=== PATIENT | female | born 1980 | race American Indian/Alaskan Native ===

== ENCOUNTER 2016-10-12 08:46 | Observation (INO) | payer BC ==
[2016-10-12] MEDS ORDERED: ZOFRAN IV PRN (10:30)
[2016-10-12] MEDS ORDERED: TYLENOL PO PRN ×2 (10:30)
[2016-10-12] MEDS ORDERED: ALUM-MAG HYDROX-SIMETH 200-200-20MG/5ML PO PRN (10:30)
[2016-10-12] MEDS ORDERED: BENADRYL PO PRN (10:30)
[2016-10-12] MEDS ORDERED: COLACE PO PRN (10:30)
[2016-10-12] MEDS ORDERED: SUDAFED PO PRN (10:30)
[2016-10-12] MEDS ORDERED: NACL 0.9% 500 ML 500 ML IV NR (10:30)
[2016-10-12] MEDS ORDERED: MYLICON PO PRN (10:30)
[2016-10-12 10:59] LABS: Basophils % (Auto) 0.5 % (0.0-1.8); Eosinophils % (Auto) 1.4 % (0.0-4.3); Hematocrit 23.6 % (30.3-42.9); Hemoglobin 7.1 gm/dl (10.1-14.3); Mean Corpuscular HGB Conc 30 % (30-34); Platelet Count 360 K/mm3 (140-440); Red Blood Count 3.98 M/mm3 (3.65-5.03); Red Cell Distribution Width 19.6 % (13.2-15.2); White Blood Count 6.8 K/mm3 (4.5-11.0)
[2016-10-12] MEDS ORDERED: ROBITUSSIN DM PO PRN (11:00)
[2016-10-12] MEDS ORDERED: DEEP SEA NS PRN (11:00)
[2016-10-12 11:02] LABS: Mean Corpuscular Hemoglobin 18 pg (28-32); Mean Corpuscular Volume 59 fl (79-97)
[2016-10-12] MEDS: LACTATED RINGERS 1,000 ML IV SCH (11:28)
[2016-10-12] MEDS ORDERED: WATER FOR INJ (PF) 10 ML ONE ×2 (14:47→21:02)
[2016-10-12] MEDS: PREMARIN IV SCH ×2 (14:56→21:21)
--- NOTE | 2016-10-12 15:25 | History and Physical Report ---
History of Present Illness Date of examination: 10/12/16 Date of admission: 10/12/16 10:11 Chief complaint: Menometrorrahgia with anemia, severe History of present illness: This is a 36year old female with excessive and frequent menstruation, uncontrolled with current medical therapy, who was found to be severely anemic on 10/07/2016 office visit (hgb 6.1) and now symptomatic. She presents now for a transfusion of PRBC's and IV estrogen. Past History : 1 Term Births: 1 Living Children: 1 CONCRETE MASON History Operations: Negative Past Surgical History Abnormal PAP: negative Infection History HIV Risk Eval: no Hx of STD: HSV Active Medications (reviewed today): VALACYCLOVIR HCL 1 GM ORAL TABS (VALACYCLOVIR HCL) 1 tab po qd x5days prn CAMRESE LO 0.1-0.02 & 0.01 MG ORAL TABS (LEVONORGEST-ETH ESTRAD 91-DAY) 1 tab po qd ADIPEX-P 37.5 MG ORAL TABS (PHENTERMINE HCL) Current Allergies (reviewed today): PCN (Critical) Past Medical History: Reviewed history from 09/06/2015 and no changes required: Negative Past Medical History Past Surgical History: Reviewed history from 09/06/2015 and no changes required: Negative Past Surgical History Family History Summary: Reviewed history and no changes required: 10/06/2016 Other family member - Has No Family History of Breast Cancer - Entered On: 2015 Other family member - Has No Family History of Colon Cancer - Entered On: 2015 Other family member - Has No Family History of Ovarvian Cancer - Entered On: 09/05 Other family member - Has No Family History of DVT/PE on OCP - Entered On: 2015 Father (biol.) - Has Family History of Prostate Cancer - Entered On: 09/09/2016 Other family member - Has No Family History of Biliary Tract Cancer - Entered On : 09/09/2016 Other family member - Has No Family History of Brain Cancer - Entered On: 2016 Other family member - Has No Family History of Kidney/Urinary Tract Cancer - Entered On: 09/09/2016 Other family member - Has No Family History of Pancreatic Cancer - Entered On: Other family member - Has No Family History of Stomach Cancer - Entered On: 2016 Other family member - Has No Family History of Small Bowel Cancer - Entered On: 09/09/2016 Social History: Reviewed history from 08/28/2016 and no changes required: Patient is single Smoking History: Patient has never smoked. Risk Factors: Smoked Tobacco Use: Never smoker Alcohol use: no PAP Smear History: Date of Last PAP Smear: 09/06/2015 Previous Tobacco Use: Signed On - 08/28/2016 Smoked Tobacco Use: Never smoker Smokeless Tobacco Use: Never Drug use: no HIV high-risk behavior: no Previous Alcohol Use: Signed On - 08/28/2016 Alcohol use: no Exercise: no Seatbelt use: 100 % PAP Smear History: Date of Last PAP Smear: 09/06/2015 Review of Systems General Denies fever, chills, sweats, anorexia, fatigue, weakness, malaise, weight loss and sleep disorder. Denies vaginal discharge, incontinence, dysuria, hematuria, urinary frequency, amenorrhea, menorrhagia, abnormal vaginal bleeding, pelvic pain, genital sores, decreased libido, painful periods, painful sex, urinary urgency, hot flashes, vaginal dryness, vaginal itching and vaginal odor. CV Denies chest pains, palpitations, syncope, dyspnea on exertion, orthopnea, PND and peripheral edema. Resp Denies cough, dyspnea at rest, excessive sputum, hemoptysis, wheezing and pleurisy. GI Denies nausea, vomiting, diarrhea, constipation, change in bowel habits, abdominal pain, melena, hematochezia, jaundice, gas/bloating, indigestion/ heartburn, dysphagia and odynophagia. Endo Denies cold intolerance, heat intolerance, polydipsia, polyphagia, polyuria and unusual weight change. Breast Denies left breast lump, right breast lump, nipple discharge, bloody discharge from nipple, breast pain, abnormal mammogram and breast enlargement. MS Denies back pain, joint pain, joint swelling, muscle cramps, muscle weakness, stiffness, arthritis, sciatica, restless legs, leg pain at night and leg pain with exertion. Derm Denies rash, itching, dryness and suspicious lesions. Neuro Denies paralysis, paresthesias, headache, seizures, tremors, vertigo, transient blindness, frequent falls, frequent headaches and difficulty walking. Psych Denies depression, anxiety, irritability and mood swings. Eyes Denies blurring, diplopia, irritation, discharge, vision loss, eye pain and photophobia. ENT Denies earache, ear discharge, tinnitus, decreased hearing, nasal congestion, nosebleeds, sore throat and hoarseness. Allergy Denies urticaria, allergic rash, hay fever and recurrent infections. Heme Denies abnormal bruising, bleeding and enlarged lymph nodes. Laboratory Results Urine HCG: negative Physical Exam performed 09/18/2016 Appearance: well developed, well nourished, no acute distress Other Exams Breast exam: no masses or nipple discharge Abdomen: soft, non-tender, no masses, Skin: no ulcers, xanthomas Lymph: no cervical, axillary, or inguinal adenopathy Extremities: normal alignment, no joint enlargement, crepitus, masses or tenderness; normal tone and strength Genitourinary Exam Vulva: normal, no lesions or discharge Urethral meatus: normal size and location, no lesions or discharge Urethra: no discharge Bladder: no cystocele Vagina: normal appearance, no discharge, lesions. No evidence of cystocele or rectocele. Cervix: normal appearance, no lesions, no discharge Uterus: normal position, midline, mobile Adnexa: no masses or tenderness Medications and Allergies Allergies Allergy/AdvReac Type Severity Reaction Status Date / Time Penicillins AdvReac Unknown Verified 10/12/16 09:55 Active Meds: Active Medications Acetaminophen (Tylenol) 650 mg PO Q4H PRN PRN Reason: Pain MILD(1-3) Acetaminophen (Tylenol) 650 mg PO Q4H PRN PRN Reason: fever>100.5 Al Hydrox/Mg Hydrox/Simethicone (Alum-Mag Hydrox-Simeth [id number]/5ml) 30 ml PO Q6H PRN PRN Reason: Indigestion Diphenhydramine HCl (Benadryl) 25 mg PO Q6H PRN PRN Reason: Itching Docusate Sodium (Colace) 100 mg PO Q12H PRN PRN Reason: Constipation Estrogens Conjugated (Premarin) 25 mg IV Q6HR JÚNIOR Stop: 10/12/16 18:01 Last Admin: 10/12/16 14:56 Dose: 25 mg Guaifenesin (Robitussin Dm) 10 ml PO Q6H PRN PRN Reason: Cough Lactated Ringer's (Lactated Ringers) 1,000 mls @ 125 mls/hr IV DIRECT JÚNIOR Last Admin: 10/12/16 11:28 Dose: 125 mls/hr Magnesium Hydroxide (Milk Of Magnesia) 30 ml PO QHS PRN PRN Reason: Laxative Effect Ondansetron HCl (Zofran) 4 mg IV Q6H PRN PRN Reason: Nausea And Vomiting Pseudoephedrine HCl (Sudafed) 30 mg PO Q4H PRN PRN Reason: Nasal Congestion Simethicone (Mylicon) 80 mg PO Q6H PRN PRN Reason: Gas pain Sodium Chloride (Deep Sea) 2 spray NS Q4H PRN PRN Reason: Congestion Exam - Constitutional Vitals: Temp Pulse Resp BP Pulse Ox 98.2 F 78 20 121/86 10/12/16 13:00 10/12/16 13:00 10/12/16 13:00 10/12/16 13:00 Results - Labs CBC & Chem 7: 10/12/16 10:34 Labs: Abnormal lab results 10/12/16 10/12/16 Range/Units 10:34 10:34 Hgb 7.1 L (10.1-14.3) gm/dl Hct 23.6 L (30.3-42.9) % MCV 59 L (79-97) fl MCH 18 L (28-32) pg RDW 19.6 H (13.2-15.2) % Crossmatch See Detail Assessment and Plan - Patient Problems (1) Anemia Current Visit: Yes Status: Chronic Qualifiers: Anemia type: A Iron deficiency anemia type: chronic blood loss Vitamin B12 deficiency anemia type: V Folate deficiency anemia type: F Bone marrow failure anemia type: B Hemolytic anemia type: H Other causes of anemia: O Qualified Code(s): D50.0 - Iron deficiency anemia secondary to blood loss ( chronic) Plan to address problem: Transfuse 2units [facility]'s now, she is currently bleeding heavy (2) Excessive and frequent menstruation with irregular cycle Current Visit: Yes Status: Chronic Plan to address problem: IV estrogen therapy then will place Mirena IUD in the office
[2016-10-12] MEDS ORDERED: MILK OF MAGNESIA PO PRN (22:00)
[2016-10-12 22:15] LABS: Hematocrit 27.4 % (30.3-42.9); Hemoglobin 8.5 gm/dl (10.1-14.3)
[2016-10-13] MEDS: LACTATED RINGERS 1,000 ML IV SCH (03:11)
--- NOTE | 2016-10-13 07:44 | Discharge Summary ---
Providers - Providers Date of Admission: 10/12/16 10:11 Attending physician: TERA GIBBONS Primary care physician: ESCROW REPRESENTATIVE Hospitalization Reason for admission: severe anemia with menorrhagia Condition: Good Hospital course: Patient has a history of menorrhagia and was noted to have a hgb of 6.1 on 2016. She became asymptomatic on Wednesday and was admitted for transfusion and estrogen IV therapy. She received 2untis PRBC's and 2 doses IV Premarin, she feels much better and she only spotting now. She desires discharge home. Disposition: DISCHARGED TO HOME OR SELFCARE - Discharge Diagnoses (1) Anemia Status: Chronic Qualifiers: Anemia type: A Iron deficiency anemia type: chronic blood loss Vitamin B12 deficiency anemia type: V Folate deficiency anemia type: F Bone marrow failure anemia type: B Hemolytic anemia type: H Other causes of anemia: O Qualified Code(s): D50.0 - Iron deficiency anemia secondary to blood loss ( chronic) (2) Excessive and frequent menstruation with irregular cycle Status: Chronic Core Measure Documentation - Palliative Care Palliative Care/ Comfort Measures: Not Applicable - Core Measures Any of the following diagnoses?: none Exam - Constitutional Vitals: Temp Pulse Resp BP Pulse Ox 98.1 F 76 20 134/79 10/13/16 05:00 10/13/16 05:00 10/13/16 05:00 10/13/16 05:00 Plan Activity: other (no sex, stay home) Weight Bearing Status: Weight Bear as Tolerated Diet: regular Special Instructions: no heavy lifting Follow up with: VERNON DOLL MD [Primary Care Provider] - 7 Days TERA GIBBONS MD [Staff Physician] - 10/14/16 2:45 pm (Andreas) Forms: Work/School Release Form
[2016-10-13 09:03] VITALS: BP 142/80
== END 2016-10-13 10:15 | disposition home or self-care (01) ==
LOC: OB 08:46 → UNDOADMIN 08:46 → INTOOBSV 10:11 → OB 10:11
PROVIDERS: ADMIT Obstetrics & Gynecology; ATTEND Obstetrics & Gynecology
DX: D50.0 Iron deficiency anemia secondary to blood loss (chronic) (principal); N92.1 Excessive and frequent menstruation with irregular cycle; Z80.42 Family history of malignant neoplasm of prostate
CPT/HCPCS: 36415; 81025; 85014; 85018; 85025; 86850; 86900; 86901; 86920; 96361; 96374; 96375; 96376; G0378; G0379; J1410; J2405; J7040; J7120; P9016

== ENCOUNTER 2016-11-10 06:06 | Observation (INO) | payer BC ==
--- NOTE | 2016-11-06 12:56 | Anesthesia Consultation ---
Anesthesia Consult and Med Hx Date of service: 11/06/16 - Airway Anesthetic Teeth Evaluation: Good ROM Head & Neck: Adequate Mental/Hyoid Distance: Adequate Mallampati Class: Class II Intubation Access Assessment: Probably Good - Pulmonary Exam CTA: Yes - Cardiac Exam Cardiac Exam: RRR - Pre-Operative Health Status ASA Pre-Surgery Classification: ASA2 Proposed Anesthetic Plan: General Nerve Block: TAP - Pulmonary Hx Smoking: No Hx Asthma: No COPD: No Hx Pneumonia: No - Cardiovascular System Hx Hypertension: No Hx Coronary Artery Disease: No - Central Nervous System Hx Seizures: No CVA: No Hx Psychiatric Problems: No - Endocrine Hx Renal Disease: No Hx End Stage Renal Disease: No Hx Hyperthyroidism: No - Hematic Hx Anemia: Yes - Other Systems Hx Cancer: No
[2016-11-06 13:20] LABS: Hematocrit 34.4 % (30.3-42.9); Hemoglobin 10.9 gm/dl (10.1-14.3); Mean Corpuscular HGB Conc 32 % (30-34); Mean Corpuscular Volume 72 fl (79-97); Platelet Count 303 K/mm3 (140-440); Red Blood Count 4.81 M/mm3 (3.65-5.03); White Blood Count 8.5 K/mm3 (4.5-11.0)
[2016-11-06 13:28] LABS: Mean Corpuscular Hemoglobin 23 pg (28-32); Red Cell Distribution Width 31.1 % (13.2-15.2)
[2016-11-06 14:11] LABS: Blastocytes % (Manual) 0 %
[2016-11-06 14:12] LABS: Anisocytosis 3+; Diff Status Complete; Hypochromasia 1+; Platelet Estimate Consistent w Auto
--- NOTE | 2016-11-09 18:00 | History and Physical Report ---
History of Present Illness Date of examination: 11/06/16 Chief complaint: Menometrorrhagia causing severe anemia that required a transfusion of PRBCs. She now desires definitive therapy in the form of hysterectomy with bilateral salpingectomy and other indicated procedures. Past History : 1 Term Births: 1 Living Children: 1 SAND BLASTER History Operations: Negative Past Surgical History Abnormal PAP: negative Infection History HIV Risk Eval: no Hx of STD: HSV Active Medications (reviewed today): IBUPROFEN 800 MG TABS (IBUPROFEN) 1 po TID (PRN) OXYCODONE-ACETAMINOPHEN 5-325 MG TABS (OXYCODONE-ACETAMINOPHEN) 1-2po q6h MIRENA 20 MCG/24HR IUD (LEVONORGESTREL) insert with next FERROUS SULFATE 325 (65 FE) MG TABS (FERROUS SULFATE) 1 po tid VALACYCLOVIR HCL 1 GM ORAL TABS (VALACYCLOVIR HCL) 1 tab po qd x5days prn Current Allergies (reviewed today): PCN (Critical) Past Medical History: Anemia Past Surgical History: Reviewed history from 09/06/2015 and no changes required: Negative Past Surgical History Social History: Reviewed history from 09/18/2016 and no changes required: Patient is single Smoking History: Patient has never smoked. Risk Factors: Smoked Tobacco Use: Never smoker Smokeless Tobacco Use: Never Drug use: no HIV high-risk behavior: no Alcohol use: no Exercise: no Seatbelt use: 100 % PAP Smear History: Date of Last PAP Smear: 09/18/2016 Previous Tobacco Use: Signed On 10/23/2016 Smoked Tobacco Use: Never smoker Smokeless Tobacco Use: Never Drug use: no HIV high-risk behavior: no Previous Alcohol Use: Signed On 10/23/2016 Alcohol use: no Exercise: no Seatbelt use: 100 % PAP Smear History: Date of Last PAP Smear: 09/18/2016 Review of Systems General Denies fever, chills, sweats, anorexia, fatigue, weakness, malaise, weight loss and sleep disorder. Complains of abnormal vaginal bleeding. Denies vaginal discharge, incontinence, dysuria, hematuria, urinary frequency, amenorrhea, menorrhagia, pelvic pain, genital sores, decreased libido , painful periods, painful sex, urinary urgency, hot flashes, vaginal dryness, vaginal itching and vaginal odor. CV Denies chest pains, palpitations, syncope, dyspnea on exertion, orthopnea, PND and peripheral edema. Resp Denies cough, dyspnea at rest, excessive sputum, hemoptysis, wheezing and pleurisy. GI Denies nausea, vomiting, diarrhea, constipation, change in bowel habits, abdominal pain, melena, hematochezia, jaundice, gas/bloating, indigestion/ heartburn, dysphagia and odynophagia. Endo Denies cold intolerance, heat intolerance, polydipsia, polyphagia, polyuria and unusual weight change. Breast Denies left breast lump, right breast lump, nipple discharge, bloody discharge from nipple, breast pain, abnormal mammogram and breast enlargement. MS Denies back pain, joint pain, joint swelling, muscle cramps, muscle weakness, stiffness, arthritis, sciatica, restless legs, leg pain at night and leg pain with exertion. Derm Denies rash, itching, dryness and suspicious lesions. Neuro Denies paralysis, paresthesias, headache, seizures, tremors, vertigo, transient blindness, frequent falls, frequent headaches and difficulty walking. Psych Denies depression, anxiety, irritability and mood swings. Eyes Denies blurring, diplopia, irritation, discharge, vision loss, eye pain and photophobia. ENT Denies earache, ear discharge, tinnitus, decreased hearing, nasal congestion, nosebleeds, sore throat and hoarseness. Allergy Denies urticaria, allergic rash, hay fever and recurrent infections. Heme Denies abnormal bruising, bleeding and enlarged lymph nodes. Physical Exam Appearance: well developed, well nourished, no acute distress Other Exams Breast exam: no masses or nipple discharge Lungs: no rales, rhonchi, or wheezes Heart: S1, S2, no murmur, rub, or gallop Abdomen: soft, non-tender, no masses Skin: no ulcers, xanthomas Lymph: no cervical, axillary, or inguinal adenopathy Extremities: normal alignment, no joint enlargement, crepitus, masses or tenderness; normal tone and strength Genitourinary Exam Vulva: normal, no lesions or discharge Urethral meatus: normal size and location, no lesions or discharge Urethra: no discharge Bladder: no cystocele Vagina: normal appearance, no discharge, lesions. No evidence of cystocele or rectocele. Cervix: normal appearance, no lesions, no discharge Uterus: normal position, midline, mobile Adnexa: no masses or tenderness Impression & Recommendations: Problem # 1: Excessive and frequent menstruation with irregular cycle (ICD- 626.6) (ESG87-A63.1) Diagnosis explained to patient . Questions answered. Discussed with patient various medical and surgical therapies common for treatment: Hormonal/medical therapy,endometrial ablation or hysterectomy. She desires to proceed with hysterectomy. Consent reviewed and signed . Possible laparoscopy or laparotomy explained to patient. The risks and alternatives for this surgery were reviewed with the patient. She was informed of possible bleeding, infection, injury to bowel, bladder, ureters or other adjacent organs. She desires ovarian conservation. She was informed she may require surgery later to have her ovaries removed for a benign or mailgnant condition. She was also informed she will not be able to the get after her uterus has been removed. The patient was instructed/informed the following: The normal length of hospital stay for this procedure. Nothing to eat or drink after midnight the evening prior to surgery. Clear liquids the day before surgery. Fleets enema the day prior to surgery. Pre-op instruction sheets given. Wound care instructions given. Infection precautions reviewed, patient to call for any signs or symptoms of infection. The usual discomforts associated with this procedure were detailed. Proper use of pain medicines was reviewed. Patient was given ample opportunity to have all her questions answered before signing informed consent. Problem # 2: Anemia secondary to blood loss (chronic) (ICD-280.0) (YZO03-S94.0) Medications Added to Medication List This Visit: 1) Ibuprofen 800 Mg Tabs (Ibuprofen) .... 1 po tid (prn) 2) Oxycodone-acetaminophen 5-325 Mg Tabs (Oxycodone-acetaminophen) .... 1-2po q6h Prescriptions: IBUPROFEN 800 MG TABS (IBUPROFEN) 1 po TID (PRN) #30 x 2 Entered and Authorized by: Maylin Lovett MD Method used: Print then Give to Patient RxID: [id number] OXYCODONE-ACETAMINOPHEN 5-325 MG TABS (OXYCODONE-ACETAMINOPHEN) 1-2po q6h #30 x 0 Entered and Authorized by: Maylin Lovett MD Method used: Print then Give to Patient RxID: [id number] Medications and Allergies Allergies Allergy/AdvReac Type Severity Reaction Status Date / Time Penicillins Allergy swelling, Verified 11/03/16 09:19 rash Home Medications Medication Instructions Recorded Confirmed Last Taken Type Ferrous Sulfate [Feosol] 325 mg PO TID 10/12/16 11/03/16 10/12/16 History 325 mg Active Meds: Active Medications Celecoxib (Celebrex) 200 mg PO PREOP NR Stop: 11/10/16 23:01 Famotidine (Pepcid) 20 mg PO PREOP NR Stop: 11/10/16 23:00 Fentanyl (Sublimaze) 100 mcg IV ONCE JÚNIOR Stop: 11/10/16 23:01 Gabapentin (Neurontin) 600 mg PO PREOP NR Stop: 11/10/16 23:00 Gentamicin Sulfate (Garamycin) 120 mg 1.5 mg/kg (120 mg) IV PREOP JÚNIOR PRN Reason: Protocol Stop: 11/10/16 23:59 Lactated Ringer's (Lactated Ringers) 1,000 mls @ 75 mls/hr IV DIRECT JÚNIOR Clindamycin HCl (Cleocin 600 Mg/50 Ml) 600 mg in 50 mls @ 100 mls/hr IV PREOP NR PRN Reason: Protocol Stop: 11/10/16 23:59 Midazolam HCl (Versed) 2 mg IV PREOP NR Stop: 11/10/16 23:59 Exam Vital Signs Temp Pulse Resp BP 97.8 F 76 16 130/88 11/06/16 12:40 11/06/16 12:40 11/06/16 12:40 11/06/16 12:40 Results - Labs 11/06/16 12:50 Assessment and Plan - Patient Problems (1) Anemia Status: Chronic Qualifiers: Anemia type: A Iron deficiency anemia type: chronic blood loss Vitamin B12 deficiency anemia type: V Folate deficiency anemia type: F Bone marrow failure anemia type: B Hemolytic anemia type: H Other causes of anemia: O Qualified Code(s): D50.0 - Iron deficiency anemia secondary to blood loss ( chronic) (2) Excessive and frequent menstruation with irregular cycle Status: Chronic
[~2016-11-10 06:06] MED LIST: CLEOCIN 600 MG/50 mL 600 MG/50 ML BAG IV NR; GARAMYCIN IV SCH; LACTATED RINGERS 1,000 ML IV SCH; NEURONTIN PO NR; PEPCID PO NR; SUBLIMAZE IV SCH; VERSED IV NR
[2016-11-10] MEDS ORDERED: NACL BACTERIOSTATIC INFILTRATI ONE (06:43)
[2016-11-10] MEDS ORDERED: MARCAINE-EPI/PF 0.5%-1:200,000 INFILTRATI ONE (06:58)
[2016-11-10] MEDS ORDERED: DECADRON ONE ×2 (06:58→09:19)
[2016-11-10] MEDS ORDERED: XYLOCAINE 1% 20 mL ONE (06:58)
[2016-11-10] MEDS ORDERED: CLONIDINE 1,000 MCG/10 ML VIAL EP ONE (06:58)
[2016-11-10] MEDS ORDERED: MARCAINE-EPI 0.5%-1:200,000 INFILTRATI ONE (06:59)
[2016-11-10] MEDS ORDERED: XYLOCAINE MPF 2% ONE (07:18)
[2016-11-10] MEDS ORDERED: DIPRIVAN 10 MG/ML IV ONE (07:18)
[2016-11-10] MEDS ORDERED: ZEMURON IV ONE ×2 (07:18→07:21)
--- NOTE | 2016-11-10 07:39 | Anesthesia Day of Surgery ---
Anesthesia Day of Surgery - Day of Surgery Patient Examined: Yes Patient H&P Reviewed: Yes Patient is NPO: Yes
[2016-11-10] MEDS ORDERED: NEOSPORIN GU IR ONE ×2 (07:44→10:00)
[2016-11-10] MEDS ORDERED: THROMBIN (BOVINE) TP ONE ×2 (08:05→10:00)
[2016-11-10] MEDS ORDERED: CALCIUM CHLORIDE IV ONE ×2 (08:05→10:00)
[2016-11-10] MEDS ORDERED: GARAMYCIN/NS 120MG/100ML 120 MG/100 ML BAG IV NR (09:00)
[2016-11-10] MEDS ORDERED: DILAUDID ONE (09:17)
[2016-11-10] MEDS ORDERED: NEOSTIGMINE ONE (09:18)
[2016-11-10] MEDS ORDERED: ZOFRAN ONE (09:18)
[2016-11-10] MEDS ORDERED: ROBINUL ONE (09:18)
[2016-11-10] MEDS ORDERED: NEO SYNEPHRINE/NS Syringe(OR USE) IV ONE (09:30)
[2016-11-10] MEDS ORDERED: NACL 0.9% IR ONE (10:00)
[2016-11-10] MEDS ORDERED: DILAUDID IV PRN (10:00)
--- NOTE | 2016-11-10 10:39 | Operative Report ---
Operative Report Operative Report: Date of procedure: 11/10/2016 Pre-operative diagnosis: 1. Dysfunctional uterine bleeding unresponsive to medical therapy 2. Anemia due to chronic blood loss Post-operative diagnosis: 1. Dysfunctional uterine bleeding unresponsive to medical therapy 2. Anemia due to chronic blood loss 3. Right ovarian cyst 4. Pelvic endometriosis Procedure name(s): 1. Robotic-assisted total hysterectomy 2. Bilateral salpingectomy 3. Ovarian cystectomy 4. Removal of Mirena IUD Surgeon: Maylin Lovett MD Bath Tester: Karine Lynn Anesthesia: General anesthesia Findings: Uterine was sounded to 9 cm. Grossly normal bilateral fallopian tubes. Grossly normal left ovary. 2 cm right ovarian simple cyst. Sigmoid colon was adhered to the right infundibulopelvic ligament. Endometriosis was noted on the left broad ligament. Anesthesiologist: Shannan Gruber M.D. Complications: None EBL: Minimal mL Procedure: After risks, benefits complications, consequences, and alternatives for this procedure were discussed the patient, and she voiced understanding and desired to proceed, she was taken to the OR where general anesthesia was induced. She was placed in the dorsolithotomy position, exam under anesthesia was unremarkable. She was then prepped and draped in usual sterile fashion. Timeout was performed. A bivalve speculum was introduced into the vagina. The string of the Mirena IUD was grasped and removed and sent to pathology. The speculum was removed. Addison catheter was introduced into the bladder. A bivalve speculum was introduced into the vagina, and the anterior lip of the cervix was grasped with a single-tooth tenaculum. The uterus was sounded to approximately 9 cm. The cervix was progressively dilated to allow the large the V care uterine manipulator. The tenaculum and speculum were removed and the Vcare manipulator was secured in place. A solution saturated laparotomy sponge was placed in the vagina. Sterile gloves were placed and attention was turned to the abdomen. A 12 mm Optiview trocar with scope and camera attached was placed through a midline vertical incision was approximately 10 cm superior to the elevated fundus of the uterus. The trocar with camera attached was placed under direct visualization. No bowel, bladder, ureteral or major blood vessel injury was noted. The abdomen was insufflated. Patient was placed in steep Trendelenburg position. Additional trocars were placed in the following positions: 8 mm robotic trocars were placed in the bilateral midclavicular lower abdominal region approximately 10 cm lateral to the midline incision. An additional 5 mm trocar was placed in the right lateral lower abdominal region approximately 2 cm superior to the anterior superior iliac crest. Using the right 8 mm robotic trocar, the 5 mm laparoscope with camera attached was introduced through this trocar. The midline trocar was removed. Using the Adam Kolb fascia closure device a 0 Vicryl was placed through the fascia and secured in place with a hemostat. The 12 mm Optiview trocar was introduced again through the incision under direct visualization. Once the trocars were in the proper position the robot was engaged. The instruments were introduced into the 8 mm trochars and positioned. Attention was turned to console. The uterus was elevated, bilateral salpingectomy was performed in the usual fashion. Both tubes were removed through the lateral 5 mm trocar. The utero-ovarian ligaments were clamped, cauterized and incised bilaterally using 30 W of energy. Then the round ligaments were clamped, cauterized and incised bilaterally. Right ovarian cystectomy was then performed in the usual fashion. The cyst was inadvertently ruptured and clear fluid was noted. The cyst was removed through the 5 mm trocar. The anterior leaf of the broad ligament was elevated with both blunt and sharp dissection the bladder flap was created. Once the bladder appeared to be away from the operative field attention was turned the posterior leaf of the broad ligaments. The ligaments were elevated and dissected away from the uterine vessels. Once the outline of the Vcare uterine manipulator was visualized, the uterine vessels were clamped and cauterized bilaterally. Once blanching of the uterus was noted, and the posterior outline of the Vcare manipulator was visualized, and confirmed, colpotomy was performed down to the cup of the manipulator. This incision was extended in a circumferential manner to 9:00 and 3:00 positions. The uterine vessels were clamped, cauterized and incised. The colpotomy was completed. The uterus was then delivered through the vagina. Attention was turned to the adnexa. Grossly normal left ovary was noted. The pelvis was irrigated with solution warm saline. Once hemostasis was noted the vagina was reapproximated using the V LOC 180 suture. The pelvis was again irrigated with warm normal saline. Once hemostasis was noted, platelet rich plasma was applied for further hemostasis followed by weight with poor plasma to prevent adhesions. The abdomen and pelvis were again visualized, no bowel, bladder, ureteral or major vascular injury was noted, hemostasis was also noted. The midline trocar was removed. The fascial incision was then ligated. The remaining trocars were removed. The skin incisions were approximated using 4-0 Vicryl in a subcuticular manner. The incisions were then sealed with Octylseal. The laparotomy sponge was removed from the vagina, and hemostasis was noted. The patient tolerated the procedure well and was taken to recovery room in stable condition. Counts were correct x3. Clear yellow urine was noted draining into the Addison catheter was noted. Specimens were sent to pathology: 1. Uterus and cervix with endometriosis on the left posterior broad ligament. 2. Left fallopian tube 3. Right fallopian tube 4. Right ovarian cyst 5. Mirena IUD
--- NOTE | 2016-11-10 10:50 | Post Anesthesia Evaluation ---
- Post Anesthesia Evaluation Patient Participated: Yes Airway Patent: Yes Stable Respiratory Function: Yes Nausea/Vomiting: No Temp > 96.8F: Yes Pain Manageable: Yes Adequeate Hydration: Yes Anesthesia Complications: No Block Receding Appropriately: Not Applicable Patient on Ventilator: No
[2016-11-10] MEDS ORDERED: LACTATED RINGERS 1,000 ML ONE (11:19)
[2016-11-10] MEDS ORDERED: ZOFRAN IV PRN (12:55)
[2016-11-10] MEDS ORDERED: NARCAN 0.4 MG/1 ML IV PRN (12:55)
[2016-11-10] MEDS ORDERED: LACTATED RINGERS 1,000 ML IV SCH (12:55)
[2016-11-10] MEDS ORDERED: MORPHINE IV PRN ×2 (12:55)
[2016-11-10] MEDS ORDERED: ZOFRAN PO PRN (12:55)
[2016-11-10] MEDS ORDERED: PHENERGAN PR PRN (12:55)
[2016-11-10] MEDS ORDERED: REGLAN PO PRN (12:55)
[2016-11-10] MEDS ORDERED: MILK OF MAGNESIA PO PRN (12:55)
[2016-11-10] MEDS ORDERED: PERCOCET 5/325 PO PRN (12:55)
[2016-11-10] MEDS ORDERED: REGLAN IV PRN (12:55)
[2016-11-10] MEDS ORDERED: DULCOLAX PR PRN (12:55)
[2016-11-10] MEDS: TORADOL IV SCH ×2 (13:37→21:35)
--- NOTE | 2016-11-10 14:14 | Admit Criteria Form ---
<HAI FAN - Last Filed: 11/10/16 21:11> Admission Criteria Documentation: AMBULATORY SURGERY EXCEPTION CRITERIA Ambulatory Surgery Exception Criteria ( Place 'X' for any and all applicable criteria): Surgery or procedure performed on ambulatory basis may require inpatient stay for[A] ANY ONE of the following(1)(2)(3)(4)(5)(6)(7)(8)(9): [X] I. A preoperative situation, condition, or finding that warrants inpatient stay as indicated by ANY ONE of the following: [X] a) Inpatient care needed because of severity of a disease or condition rather than the surgery (eg, severe cardiac or respiratory disease, severe infection) (15) (16 ) (17) (18) [] b) Emergent procedure (eg, angioplasty for acute ischemia)(19) [] c) Complex surgical approach or situation as indicated by ANY ONE of the following(3): [] i) Open approach needed instead of usual endoscopic, transcatheter, or other less invasive procedure [] ii) Difficult approach because of previous operation [] iii) Airway monitoring required after open neck procedures(20)(21) [] iv) Large mass requiring unusually extensive dissection [] v) Additional complicating feature requiring inpatient care (eg, drain management)(22(23): [] d) Major surgery in a pt with high anesthetic risk as indicated by ANY ONE of the following (2)(3)(5)(7)(8): [] i) ASA risk class III or higher (severe systemic disease impairing function) [D] [] ii) Advanced age (eg, older than 85 years)(14)(24) [] iii) Symptomatic heart failure(25) [] iv) Symptomatic asthma or COPD(8)(21) [] v) Morbid obesity with hemodynamic or respiratory problems(20)( 21)(26)(27) [] vi) Obstructive sleep apnea(20)(21) [] vii) Former premature infants who are younger than 60 weeks [] viii) High risk for severe postoperative abnormalities (eg, severe postoperative hypocalcemia after parathyroidectomy for severe hyperparathyroidism)(27)( 28) [] ix) Unstable angina(25) [] e) Drug-related risk requiring inpatient stay as indicated by ANY ONE of the following(5)(10)(14)(32)(33) [] i) Procedure requires discontinuing drugs or other therapy (eg , antiarrhythmic medication, antiseizure medication), which necessitates inpatient observation or treatment.(18)(31) [] ii) Major surgery and high risk drug use as indicated by ANY ONE of the following: [] 1) Active abuse of cocaine or similar drug [] 2) Monoamine oxidase inhibitor use [] 3) Other drug identified as posing risk [] f) Inadequate outpatient care situation as indicated by ANY ONE of the following(5)(10)(14)(32)(33) [] i) Patient lives remote from medical facility and procedure has urgent complication potential, and temporary nearby residence cannot be arranged [] ii) Patient will have postprocedure incapacitation and inadequate assistance at home, or alternative level of care cannot be arranged. [] iii) Patient will have long general anesthesia or procedure side effect resolution time, and competent person to stay with patient on first postoperative night at home or alternative level of care cannot be arranged. []iv) Other inadequate outpatient situation that cannot be handled by other means [] II. A perioperative event, condition, or finding that warrants inpatient stay as indicated by ANY ONE of the following (1)(2)(3): [] a) Inadequate physiologic recovery: cardiovascular, respiratory, or hemodynamic status not normal or near preoperative baseline(18) [] b) Hemodynamic instability [] c) Patient not alert with near normal or baseline mental status [] d) Temperature not normal or as expected and not appropriate for outpatient treatment of condition [] e) Ambulatory or appropriate activity level status not yet achieved post procedure [E](34)(35)(36) [] f) Operative site not appropriate (eg, unexpected or excessive drainage or bleeding) [] g) Postoperative effects not resolved or adequately managed (eg, significant pain or vomiting not appropriate for outpatient or next level of care)(10)(12) [] h) Complicating features requiring inpatient care as indicated by ANY ONE of the following(37): [] i) Severe complications of procedure (eg, bowel injury, airway compromise, vascular injury,severe hemorrhage) [] ii) Extensive (eg, dissection far beyond usual scope of procedure ) or prolonged (eg, 120 minutes beyond usual) surgery needed requiring inpatient postoperative care [] iii) Conversion to an open or complex procedure that requires inpatient care (eg, open vs laparoscopic cholecystectomy, abdominal vs vaginal hysterectomy)(38) [] iv) Comorbid condition or test result identified during or post procedure that requires inpatient care (7) [] v) Malignant hyperthermia(30) [] vi) Other complicating feature requiring inpatient care(22)(23) Inpatient stay may be needed until ALL of the following are present (1)(2)(3)(4) (5)(6)(10)(14)(33)(40): []a) Physiologic recovery: cardiovascular, respiratory, and hemodynamic status normal or near preoperative baseline []b) Hemodynamic stability []c) Patient alert, with near normal or baseline mental status []d) Temperature appropriate: patient afebrile or temperature appropriate for outpt treatment of condition []e) Activity level appropriate: ambulatory or appropriate activity level post procedure []f) Operative site appropriate as indicated by ALL of the following: []i) Site dry or with expected drainage []ii) Any blood noted is as expected for procedure. []g) Postoperative effects resolved or managed as indicated by ALL of the following: []i) Pain management appropriate for outpatient (or next level of) care(10) []ii) Minimal nausea and vomiting: if present, successfully treated with oral medication(12) []iii) Headache, dizziness, or drowsiness (if present) are mild. []h) Voiding status acceptable as indicated by ANY ONE of the following: []i) Voiding spontaneously []ii) No voiding but instructions given for follow-up in 6 to 8 hours []iii) Urinary catheter in place, and instructions given for follow-up []i) Complicating features requiring inpatient care manageable at a lower level of care(37) []j) Comorbid conditions manageable at a lower level of care(37) The original [employer] content created by [employer] has been revised. The portions of the content which have been revised are identified through the use of italic text or in bold, and [facility] [employer] has neither reviewed nor approved the modified material. All other unmodified content is copyright [facility]. Please see references footnoted in the original [employer] [facility] edition 2016 Admission Criteria Met: Yes <TERA GIBBONS - Last Filed: 11/11/16 08:33> Admission Criteria Met: No
[2016-11-10] MEDS: TYLENOL PO SCH ×2 (16:57→23:33)
--- NOTE | 2016-11-10 19:37 | Progress Note ---
Assessment and Plan Operative findings and procedure explained. Guillen empty on arrival, adjusted with drainage of ~600mL clear yellow urine after that she felt better. Questions answered. Plan of care discussed. Patient and family voiced understanding and agree with plan of care. - Patient Problems (1) Anemia Current Visit: No Status: Chronic Qualifiers: Anemia type: A Iron deficiency anemia type: chronic blood loss Vitamin B12 deficiency anemia type: V Folate deficiency anemia type: F Bone marrow failure anemia type: B Hemolytic anemia type: H Other causes of anemia: O Qualified Code(s): D50.0 - Iron deficiency anemia secondary to blood loss ( chronic) (2) Excessive and frequent menstruation with irregular cycle Current Visit: No Status: Resolved (3) History of robot-assisted laparoscopic hysterectomy Current Visit: Yes Status: Acute (4) Status post bilateral salpingectomy Current Visit: Yes Status: Acute (5) S/P ovarian cystectomy Current Visit: Yes Status: Acute (6) Endometriosis Current Visit: Yes Status: Acute Subjective Date of service: 11/10/16 Principal diagnosis: s/pRATH, (B)salpingectomy, (R) ov cystectomy Interval history: Resting in bed with family present. C/O unable to urinate. States guillen was empty~1hr ago Objective - Constitutional Vitals: Vital Signs - 12hr 11/10/16 11/10/16 11/10/16 07:39 07:44 07:49 Temperature Pulse Rate 85 64 66 Pulse Rate [ Right] Respiratory 13 16 11 L Rate Blood Pressure 129/85 120/71 111/68 Blood Pressure [Right Arm] O2 Sat by Pulse 100 100 100 Oximetry 11/10/16 11/10/16 11/10/16 07:54 10:35 10:40 Temperature 97.4 F L Pulse Rate 67 63 Pulse Rate [ Right] Respiratory 15 15 Rate Blood Pressure 110/64 111/68 109/69 Blood Pressure [Right Arm] O2 Sat by Pulse 100 100 Oximetry 11/10/16 11/10/16 11/10/16 10:45 11:00 11:15 Temperature 98.5 F Pulse Rate 60 60 68 Pulse Rate [ Right] Respiratory 14 14 14 Rate Blood Pressure 108/67 108/71 113/75 Blood Pressure [Right Arm] O2 Sat by Pulse 100 100 96 Oximetry 11/10/16 11/10/16 12:30 16:25 Temperature 97.4 F L 97.6 F Pulse Rate Pulse Rate [ 62 77 Right] Respiratory 20 18 Rate Blood Pressure Blood Pressure 112/80 114/70 [Right Arm] O2 Sat by Pulse Oximetry General appearance: Present: no acute distress - Respiratory Respiratory effort: normal Respiratory: bilateral: CTA - Cardiovascular Rhythm: regular Extremities: no ischemia, No edema - Gastrointestinal General gastrointestinal: Present: non-distended, normal bowel sounds - Genitourinary Female genitourinary: deferred - Integumentary Integumentary: clear, warm, dry - Psychiatric Psychiatric: appropriate mood/affect - Labs CBC & Chem 7: 11/06/16 12:50
[2016-11-10] MEDS: CLEOCIN 600 MG/50 mL 600 MG/50 ML BAG IV SCH (21:29)
[2016-11-10] MEDS: GARAMYCIN/NS 80 MG/100 ML 100 ML IV SCH (22:00)
[2016-11-11] MEDS: TORADOL IV SCH ×2 (03:42→09:13)
[2016-11-11] MEDS: TYLENOL PO SCH (04:56)
[2016-11-11] MEDS: CLEOCIN 600 MG/50 mL 600 MG/50 ML BAG IV SCH (04:58)
[2016-11-11] MEDS: GARAMYCIN/NS 80 MG/100 ML 100 ML IV SCH (05:22)
[2016-11-11 06:13] LABS: Hematocrit 34.3 % (30.3-42.9); Hemoglobin 10.7 gm/dl (10.1-14.3)
[2016-11-11 07:58] VITALS: BP 103/62
--- NOTE | 2016-11-11 08:33 | Discharge Summary ---
Providers - Providers Date of Admission: 11/10/16 10:13 Date of discharge: 11/11/16 Attending physician: TERA GIBBONS Primary care physician: FINANCE OFFICER Hospitalization Condition: Good Disposition: DISCHARGED TO HOME OR SELFCARE - Discharge Diagnoses (1) Anemia Status: Chronic Qualifiers: Anemia type: A Iron deficiency anemia type: chronic blood loss Vitamin B12 deficiency anemia type: V Folate deficiency anemia type: F Bone marrow failure anemia type: B Hemolytic anemia type: H Other causes of anemia: O Qualified Code(s): D50.0 - Iron deficiency anemia secondary to blood loss ( chronic) (2) History of robot-assisted laparoscopic hysterectomy Status: Acute (3) Status post bilateral salpingectomy Status: Acute (4) S/P ovarian cystectomy Status: Acute (5) Endometriosis Status: Chronic Core Measure Documentation - Palliative Care Palliative Care/ Comfort Measures: Not Applicable - Core Measures Any of the following diagnoses?: none Exam - Constitutional Vitals: Temp Pulse Resp BP Pulse Ox 98.2 F 72 18 103/62 96 11/11/16 07:56 11/11/16 07:56 11/11/16 07:56 11/11/16 07:56 11/10/16 11:15 General appearance: Present: no acute distress - Neck Neck: Present: supple - Respiratory Respiratory effort: normal Respiratory: bilateral: CTA - Cardiovascular Rhythm: regular - Extremities Extremities: no ischemia, No edema, normal temperature - Abdominal General gastrointestinal: Present: soft, non-distended, normal bowel sounds Female genitourinary: Present: deferred (She denies bleeding) - Musculoskeletal Musculoskeletal: strength equal bilaterally - Psychiatric Psychiatric: appropriate mood/affect Plan Activity: other (No sex. No driving. Void frequently to keep bladder empty. Use incentive spirometer every hour. Ambulate ~1mile on your property daily) Weight Bearing Status: Non-Weight Bearing Diet: regular Wound: open to air, keep clean and dry Special Instructions: no heavy lifting Follow up with: TERA GIBBONS MD [Staff Physician] - (as scheduled)
[2016-11-11] MEDS ORDERED: PROTONIX IV SCH (10:00)
--- NOTE | 2016-11-11 13:37 | Progress Note ---
Subjective Date of service: 11/11/16 Principal diagnosis: s/pRATH, (B)salpingectomy, (R) ov cystectomy Interval history: 1st POD after robotic hysterectomy Patient is in the room, comfortable. Pain is well under control. No nausea or vomiting. No anesthesia complications. Being discharged by the surgeon Objective - Constitutional Vitals: Vital Signs - 12hr 11/11/16 11/11/16 11/11/16 04:00 04:56 07:56 Temperature 98.6 F 98.2 F Pulse Rate [ 58 L 72 Right] Respiratory 16 16 18 Rate Blood Pressure 119/68 103/62 [Right Arm] - Labs CBC & Chem 7: 11/11/16 05:40 Labs: Abnormal lab results 11/10/16 Range/Units 19:38 POC Glucose 113 H (70-105)
== END 2016-11-11 10:10 | disposition home or self-care (01) ==
LOC: OR 06:06 → OB 10:13 → 3A 11:09 → OB 11:10
PROVIDERS: ADMIT Obstetrics & Gynecology; ATTEND Obstetrics & Gynecology
DX: N92.1 Excessive and frequent menstruation with irregular cycle (principal); D50.0 Iron deficiency anemia secondary to blood loss (chronic); N80.9 Endometriosis, unspecified; N83.201 Unspecified ovarian cyst, right side; Z90.710 Acquired absence of both cervix and uterus; Z90.79 Acquired absence of other genital organ(s)
CPT/HCPCS: 36415; 58571; 64450; 81025; 82962; 85007; 85014; 85018; 85025; 86850; 86900; 86901; 88300; 88305; 88307; 96365; 96367; 96375; 96376; A4217; C9113; G0378; J0735; J1100; J1170; J1580; J1885; J2250; J2270; J2370; J2405; J2704; J2710; J3010; J7120; S2900; 88302

== ENCOUNTER 2020-06-26 08:00 | Outpatient (CLI) | payer BC, OTHER ==
--- NOTE | 2020-06-26 08:58 | Mammography Report ---
DIGITAL SCREENING MAMMOGRAM WITH CAD, 06/26/2020 CLINICAL INFORMATION / INDICATION: Routine screening mammography. TECHNIQUE: Digital bilateral 2D mammography was obtained in the craniocaudal and mediolateral obliqu e projections. This examination was interpreted with the benefit of Computer-Aided Detection analysis . COMPARISON: 06/20/2018, 06/26/2019 FINDINGS: Breast Density: The breasts are heterogeneously dense, which may obscure small masses. No dominant mass, suspicious calcifications, or architectural distortion in either breast. No interval change. IMPRESSION: No mammographic evidence of malignancy. Follow up recommendation: Routine yearly BI-RADS Category 1: Negative. A "normal" or negative report should not discourage follow up or biopsy of a clinically significant f inding. A written summary of these findings will be mailed to the patient. The patient will be entered into a mammography reporting system which will generate a reminder letter for the patient's next appointmen t at the appropriate interval. The [employer] recommends yearly mammograms starting at age 40 and continuing as l frannie as a woman is in good health. Breast MRI is recommended for women with an approximate 20-25% or greater lifetime risk of breast cancer, including women with a strong family history of breast or ova mery cancer or who have been treated for Hodgkin's disease. Signer Name: Abbi Lowe MD Signed: 06/26/2020 8:53 AM Workstation Name: [id number]
== END 2020-06-26 08:01 | disposition home or self-care (01) ==
LOC: SPVWC 08:00
PROVIDERS: ATTEND Surgery
DX: Z12.31 Encounter for screening mammogram for malignant neoplasm of breast (principal); N64.89 Other specified disorders of breast
CPT/HCPCS: 77067